=== PATIENT | female | born 1980 | race Caucasian/White ===

== ENCOUNTER → 2019-02-14 | Day surgery (SDC) | payer OTHER ==
--- OUTSIDE RECORDS SUMMARY | 2019-02-14 09:39 | XMS REPORT | Clinical Summary ---
:1980 Author Organization [facility] Address [address] [place] [address] Care Team Providers Name Role Phone Ketan Mccarthy MD Primary Care Provider Allergies Active Allergy Reactions Severity Noted Date Comments Amoxicillin-Pot Clavulanate GI Intolerance, Diarrhea Low 11/25/2010 Codeine Sulfa (Sulfonamide Antibiotics) Other (See Comments) Low Medications Medication Sig Dispensed Refills Start Date End Date Status lisinopril Take 10 mg by 0 Active (PRINIVIL,ZESTRIL) mouth daily. 10 mg tablet montelukast Take 10 mg by 0 Active (SINGULAIR) 10 mg mouth nightly. tablet fexofenadine Take 180 mg by 0 Active (GERALDINE) 180 MG mouth daily. tablet meloxicam (MOBIC) 15 TAKE 1 90 tablet 1 12/23/2018 Active mg tablet TABLET(15 MG) BY MOUTH DAILY traMADol (ULTRAM) 50 Take 1 tablet 30 tablet 0 07/16/2018 mg tablet (50 mg total) 8 by mouth every 6 (six) hours as needed for moderate pain for up to 30 days. clindamycin (CLEOCIN Take 1 capsule 6 capsule 0 07/30/2018 Discontinued HCL) 300 MG capsule (300 mg total) 8 by mouth 3 (three) times a day for 2 days. ondansetron ODT Take 1 tablet 30 tablet 1 07/30/2018 (ZOFRAN ODT) 4 MG (4 mg total) 8 disintegrating by mouth every tablet 8 (eight) hours as needed for nausea or vomiting for up to 30 days. HYDROcodone-acetamin Take 1 tablet 50 tablet 0 08/01/2018 ophen (NORCO) 10-325 by mouth every 8 mg per tablet 4 (four) hours as needed for severe pain for up to 30 days. Max Daily Amount: 6 tablets HYDROcodone-acetamin Take 1-2 50 tablet 0 09/12/2018 ophen (NORCO) 5-325 tablets by 8 mg per tablet mouth every 4 (four) hours as needed for moderate pain for up to 30 days. Max Daily Amount: 12 tablets meloxicam (MOBIC) 15 Take 1 tablet 30 tablet 1 10/28/2018 Discontinued mg tablet (15 mg total) 9 by mouth daily. Active Problems Problem Noted Date Loose body of right knee 07/19/2018 Overview: Added automatically from request for surgery [id number] Encounters Date Type Specialty Care Team Description 12/31/2018 Office Visit Orthopedic Iggy Myles, Osteochondritis Surgery dissecans of knee, right (Primary Dx) 12/22/2018 Refill Orthopedic Iggy Myles, Surgery 11/19/2018 Office Visit Iggy Carver, Loose body of right Surgery knee (Primary Dx) 10/28/2018 Telephone Orthopedic Diana Galloway MA Surgery 10/28/2018 Orders Only Orthopedic Diana Galloway MA Surgery 10/15/2018 Office Visit Iggy Carver, Tear of medial meniscus of right knee, current, unspecified tear type, subsequent encounter ( Primary Dx); Surgery Osteochondritis dissecans of knee, right; Effusion of right knee 09/12/2018 Office Visit Iggy Carver, Effusion of right knee Surgery (Primary Dx) 08/13/2018 Office Visit Orthopedic Iggy Myles, Osteochondritis Surgery dissecandenae of knee, right (Primary Dx) 08/02/2018 Anesthesia Event General Surgery Arianne Montejo FNP 08/02/2018 Surgery General Surgery Iggy Myles, Right Arthroscopy of MD the Knee with Removal of Loose Body 08/02/2018 Hospital Encounter General Surgery Iggy Myles MD 08/01/2018 Orders Only Orthopedic Diana Galloway MA Surgery 08/01/2018 Orders Only Orthopedic Darci Cates MA Loose body of right Surgery knee (Primary Dx) 07/30/2018 Orders Only Orthopedic Peluse, Surgery MERCEDES Joshua 07/30/2018 Orders Only Orthopedic Peluse, Surgery MERCEDES Joshua 07/25/2018 Pre-Admit Testing Pre-Admission Iggy Myles, Pre-op testing Appointment Testing MD (Primary Dx) 07/19/2018 Transcribe Orders Orthopedic Iggy Myles Loose body of right Surgery MD knee (Primary Dx) 07/16/2018 Office Visit Orthopedic Iggy Myles, Osteochondritis Surgery dissecans of knee, right (Primary Dx) 07/13/2018 Hospital Encounter Radiology Iggy Myles Osteochondritis dissecans of knee, right 07/02/2018 Office Visit Orthopedic Iggy Myles, Osteochondritis Surgery dissecans of knee, right (Primary Dx) after 02/13/2018 Family History Medical History Relation Name Comments Hypertension Father Hypertension Mother Thyroid disease Mother Relation Name Status Comments Father Alive Mother Alive Social History Tobacco Use Types Packs/Day Years Used Date Never Smoker Smokeless Tobacco: Never Used Alcohol Use Drinks/Week oz/Week Comments Yes OCASSIONAL PER PT Sex Assigned at Date Recorded Not on file Job Start Date Occupation Industry Not on file Not on file Not on file Travel History Travel Start Travel End No recent travel history available. Last Filed Vital Signs Vital Sign Reading Time Taken Blood Pressure 138/78 08/02/2018 4:45 PM CDT Pulse 90 08/02/2018 4:45 PM CDT Temperature 36.6 C (97.8 F) 08/02/2018 4:00 PM CDT Respiratory Rate 22 08/02/2018 4:45 PM CDT Oxygen Saturation 96% 08/02/2018 4:45 PM CDT Inhaled Oxygen Concentration - - Weight 91.6 kg (202 lb) 08/02/2018 10:39 AM CDT Height 167.6 cm (5' 6") 07/25/2018 9:43 AM CDT Body Mass Index 32.6 08/02/2018 10:39 AM CDT Plan of Treatment Health Maintenance Due Date Last Done Comments CERVICAL CANCER SCREENING 2003 INFLUENZA VACCINE 06/12/2019 Procedures Procedure Name Priority Date/Time Associated Comments Diagnosis [place] ARTHROCENTESIS Routine 09/12/2018 10:00 Effusion of right Results for this ASPIR&/INJ MAJOR AM CDT knee procedure are in JT/BURSA W/O US the results section. TX AN ELECTIVE Routine 08/02/2018 1:59 SUPRAGLOTTIC AIRWAY PM CDT Procedure Note - Cristela José CRNA - 08/02/2018 1:59 PM CDT Airway Date/Time: 08/02/2018 1:51 PM Performed by: CRISTELA JOSÉ Authorized by: LUCRETIA BAIRD Location: OR Urgency: Elective Difficult Airway: No Anesthesiologist: LUCRETIA BAIRD Resident/SCRUM COACH/AA: CRISTEAL JOSÉ Performed by: resident/SCRUM COACH/AA Preoxygenated with 100% O2: Yes C-spine Precautions Maintained Throughout: Yes Mask Ventilation: Not attempted Final Airway Type: Supraglottic airway Final LMA: Unique LMA Size: 4 Number of Attempts at Approach: 1 Atraumatic LMA insertion; lips/teeth/gums unchanged. POC , Routine 08/02/2018 10:49 Results for this URINE AM CDT procedure are in the results section. POC GLUCOSE Routine 08/02/2018 10:37 Results for this AM CDT procedure are in the results section. ESTIMATED GFR Routine 07/25/2018 10:25 Results for this AM CDT procedure are in the results section. BASIC METABOLIC Routine 07/25/2018 10:25 Pre-op testing Results for this PANEL AM CDT procedure are in the results section. HC COMPLETE BLD Routine 07/25/2018 10:25 Pre-op testing Results for this COUNT W/AUTO DIFF AM CDT procedure are in the results section. ECG PRE/POST OP Routine 07/25/2018 9:19 Pre-op testing Results for this AM CDT procedure are in the results section. MRI KNEE WO Routine 07/13/2018 10:54 Osteochondritis Results for this CONTRAST RIGHT AM CDT dissecans of knee, procedure are in right the results section. after 02/13/2018 Results Large Joint Arthrocentesis (09/12/2018 10:00 AM CDT) Narrative Performed At Iggy Myles MD 09/12/2018 10:57 AM Large Joint Arthrocentesis Consent given by: patient Timeout: Immediately prior to procedure a time out was called to verify the correct patient, procedure, equipment, information support project manager and site/side marked as required Supporting Documentation Indications: pain and joint swelling Procedure Details Preparation: Patient was prepped and draped in the usual sterile fashion Ultrasound guided: no Location: knee - R knee Right side: Needle size: 25 G Approach: anterolateral Right knee medications administered: 5 mL lidocaine 10 mg/mL (1 %); 80 mg methylPREDNISolone acetate 40 mg/mL POC , urine (08/02/2018 10:49 AM CDT) test urine, POC Negative QC done Yes Specimen Urine POC glucose (08/02/2018 10:37 AM CDT) POC glucose 81 65 - 99 mg/dL [facility] DEPARTMENT OF PATHOLOGY AND Comment: GENOMIC MEDICINE Meter ID: [id number] Help Desk Supervisor: Bard Rios Performing Organization Address City/[facility] Phone Number [facility] DEPARTMENT OF PATHOLOGY [id number] [place] [address] AND IMANIN MEDICINE Estimated GFR (07/25/2018 10:25 AM CDT) Estimated GFR >=90 mL/min/1.73 m2 [facility] DEPARTMENT OF Comment: PATHOLOGY AND GENOMIC CatergoryUnitsInterpretation MEDICINE G1 >=90 Normal or high G2 60-89Mildly decreased [id number] to moderately decreased O3c70-81Tpexjlcukl to severely decreased G4 15-29Severely decreased G5 <15Kidney failure The eGFR was calculated using the Chronic Kidney Disease Epidemiology Collaboration (CKD-EPI) equation. Interpretation is based on recommendations of the National Kidney Foundation-Kidney Disease Outcomes Quality Initiative (NKF-KDOQI) published in 2014. Specimen Plasma specimen Performing Organization Address City/[facility] Phone Number [facility] DEPARTMENT OF PATHOLOGY [address] [place] [address] AND [employer]. CBC with platelet and differential (07/25/2018 10:25 AM CDT) WBC 7.8 4.5 - 11.0 k/uL [facility] DEPARTMENT OF PATHOLOGY AND GENOMIC MEDICINE RBC 4.01 (L) 4.20 - 5.50 m/uL [facility] DEPARTMENT OF PATHOLOGY AND GENOMIC MEDICINE HGB 11.9 (L) 12.0 - 16.0 g/dL [facility] DEPARTMENT OF PATHOLOGY AND GENOMIC MEDICINE HCT 36.0 (L) 37.0 - 47.0 % [facility] DEPARTMENT OF PATHOLOGY AND GENOMIC MEDICINE MCV 89.8 82.0 - 100.0 fL [facility] DEPARTMENT OF PATHOLOGY AND GENOMIC MEDICINE MCH 29.7 27.0 - 34.0 pg [facility] DEPARTMENT OF PATHOLOGY AND GENOMIC MEDICINE MCHC 33.1 31.0 - 37.0 g/dL [facility] DEPARTMENT OF PATHOLOGY AND GENOMIC MEDICINE RDW - SD 41.7 37.0 - 55.0 fL [facility] DEPARTMENT OF PATHOLOGY AND GENOMIC MEDICINE MPV 10.4 6.9 - 11.0 fL [facility] DEPARTMENT OF PATHOLOGY AND GENOMIC MEDICINE Platelet count 247 150 - 400 K/uL [facility] DEPARTMENT OF PATHOLOGY AND GENOMIC MEDICINE Nucleated RBC 0.00 /100 WBC [facility] DEPARTMENT OF PATHOLOGY AND GENOMIC MEDICINE Neutrophils 68.0 39.0 - 69.0 % [facility] DEPARTMENT OF PATHOLOGY AND GENOMIC MEDICINE Lymphocytes 22.6 (L) 25.0 - 45.0 % [facility] DEPARTMENT OF PATHOLOGY AND GENOMIC MEDICINE Monocytes 7.3 0.0 - 10.0 % [facility] DEPARTMENT OF PATHOLOGY AND GENOMIC MEDICINE Eosinophils 1.4 0.0 - 5.0 % [facility] DEPARTMENT OF PATHOLOGY AND GENOMIC MEDICINE Basophils 0.4 0.0 - 1.0 % [facility] DEPARTMENT OF PATHOLOGY AND GENOMIC MEDICINE Immature granulocytes 0.3 0.0 - 1.0 % [facility] DEPARTMENT OF PATHOLOGY AND GENOMIC MEDICINE Specimen Blood Performing Organization Address City/[facility] Phone Number [facility] DEPARTMENT OF PATHOLOGY [address] [place] [address] AND IMANIN MEDICINE Basic metabolic panel (07/25/2018 10:25 AM CDT) Sodium 141 135 - 148 mEq/L [facility] DEPARTMENT OF PATHOLOGY AND GENOMIC MEDICINE Potassium 4.1 3.5 - 5.0 mEq/L [facility] DEPARTMENT OF PATHOLOGY AND GENOMIC MEDICINE Chloride 104 98 - 112 mEq/L [facility] DEPARTMENT OF PATHOLOGY AND GENOMIC MEDICINE CO2 25 24 - 31 mEq/L [facility] DEPARTMENT OF PATHOLOGY AND GENOMIC MEDICINE Anion gap 12@ANIO 7 - 15 mEq/L [facility] DEPARTMENT OF PATHOLOGY AND GENOMIC MEDICINE BUN 10 6 - 20 mg/dL [facility] DEPARTMENT OF PATHOLOGY AND GENOMIC MEDICINE Creatinine 0.71 0.50 - 0.90 mg/dL [facility] DEPARTMENT OF PATHOLOGY AND GENOMIC MEDICINE Glucose 77 65 - 99 mg/dL [facility] DEPARTMENT OF PATHOLOGY AND GENOMIC MEDICINE Calcium 9.2 8.3 - 10.2 mg/dL [facility] DEPARTMENT OF PATHOLOGY AND GENOMIC MEDICINE Specimen Plasma specimen Performing Organization Address City/[facility] Phone Number [facility] DEPARTMENT OF PATHOLOGY [address] [facility] [place] [address] AND GENOMIC MEDICINE ECG Pre/Post Op (07/25/2018 9:19 AM CDT) Ventricular rate 84 [facility] Atrial rate 84 [facility] TX interval 140 [facility] QRSD interval 84 [facility] QT interval 370 [facility] QTC interval 437 [facility] P axis 1 29 [facility] QRS axis 1 29 [facility] T wave axis 16 [facility] EKG impression Normal sinus rhythm-Cannot rule out Anterior [facility] infarct , age undetermined-Abnormal ECG-No previous ECGs available- Performing Organization Address City/State/Zipcode Phone Number [facility] M[facility] [address] [place] [address] MRI Knee Right Wo Contrast (07/13/2018 10:54 AM CDT) Narrative Performed At MRI KNEE WO CONTRAST RIGHT [facility] CLINICAL INDICATION:M93.261 Osteochondritis dissecansright knee, pain right knee TECHNIQUE:Multiplanar multisequence MR imaging of the right knee was performed without gadolinium contrast. COMPARISON:None. FINDINGS: Cruciate ligaments:Intact Menisci:There is focal blunting of the free edge of the posterior horn of the medial meniscus consistent with tear. Additional focal free edge tearing of the medial meniscal body is noted. Lateral meniscus is intact. Collateral ligaments:Intact Bone marrow:There is an osteochondral fragment involving the medial femoral condyle centrally with well-defined margins, the fragment 1.6 cm anteroposterior and 1.5 cm transverse. Sclerotic margins as well as fluid signal undercuts the deep aspect of this lesion consistent with an unstable lesion and there is moderate focal surrounding bone marrow edema (series 6 image 18 for example). Articular cartilage:Articular surface irregularity of the medial femoral condyle is noted about the osteochondral defect and there is mild thinning peripherally in the medial compartment. Otherwise unremarkable. Effusion:Small and large joint effusion. Extensor mechanism:Intact Soft tissues:No collection or significant periarticular tendinopathy. IMPRESSION: 1.6 cm unstable osteochondral defect involving the medial femoral condyle with associated bone marrow edema. Focal tears of the posterior horn and body of the medial meniscus as described. Thank you for allowing us to participate in the care of your patient. [facility]-[id number] Procedure Note Hm Interface, Radiology Results Incoming - 07/13/2018 11:31 AM CDT MRI KNEE WO CONTRAST RIGHT CLINICAL INDICATION: M93.261 Osteochondritis dissecans right knee, pain right knee TECHNIQUE: Multiplanar multisequence MR imaging of the right knee was performed without gadolinium contrast. COMPARISON: None. FINDINGS: Cruciate ligaments: Intact Menisci: There is focal blunting of the free edge of the posterior horn of the medial meniscus consistent with tear. Additional focal free edge tearing of the medial meniscal body is noted. Lateral meniscus is intact. Collateral ligaments: Intact Bone marrow: There is an osteochondral fragment involving the medial femoral condyle centrally with well-defined margins, the fragment 1.6 cm anteroposterior and 1.5 cm transverse. Sclerotic margins as well as fluid signal undercuts the deep aspect of this lesion consistent with an unstable lesion and there is moderate focal surrounding bone marrow edema (series 6 image 18 for example). Articular cartilage: Articular surface irregularity of the medial femoral condyle is noted about the osteochondral defect and there is mild thinning peripherally in the medial compartment. Otherwise unremarkable. Effusion: Small and large joint effusion. Extensor mechanism: Intact Soft tissues: No collection or significant periarticular tendinopathy. IMPRESSION: 1.6 cm unstable osteochondral defect involving the medial femoral condyle with associated bone marrow edema. Focal tears of the posterior horn and body of the medial meniscus as described. Thank you for allowing us to participate in the care of your patient. [facility]-[id number] Performing Organization Address City/State/Zipcode Phone Number [facility] [address] [place] [address] after 02/13/2018 Insurance Payer Benefit Plan / Group Subscriber ID Type Phone Address [employer] ADMIN xxxxxxxxx PPO Advance Directives Patient has advance care planning documents on file. For more information, please contact:[address] [address]
--- NOTE | 2019-02-14 12:30 | RAD REPORT ---
EXAM DESCRIPTION: US - Breast Core BX w/US Guidance - 02/14/2019 10:51 am CLINICAL HISTORY: ICD N63.10 COMPARISON: February 11 2019 ultrasound TECHNIQUE: The risks, benefits alternatives to the procedure were explained to the patient and infor med consent obtained. Skin and subcutaneous tissues anesthetized with lidocaine. Under sonographic guidance, ree 14 gauge vacuum assisted core biopsies of the 1.4 centimeter mass w ithin the lower outer right breast obtained. 2 centimeter specimens taken. Materials given to pathology. Subsequently a localizing clip was placed into the mass. Patient experienced no immediate complication IMPRESSION: Vacuum assisted core biopsies of the right breast mass
== END ==
LOC: DS 09:37
PROVIDERS: ATTEND Clinical Nurse Specialist Women's Health
DX: N63.10 Unspecified lump in the right breast, unspecified quadrant (principal)
CPT/HCPCS: 19083; 88305

== ENCOUNTER 2019-03-04 21:59 | Observation (INO) | payer OTHER ==
--- OUTSIDE RECORDS SUMMARY | 2019-03-04 22:02 | XMS REPORT | Clinical Summary ---
:1980 Author Organization [facility] Address [address] [place] [address] Care Team Providers Name Role Phone Ketan [...] Overview: Added automatically from request for surgery [id number] Encounters Date Type Specialty Care Team Description 12/31/2018 Office Visit Orthopedic Iggy Myles, Osteochondritis Surgery dissecans of knee, right (Primary Dx) 12/22/2018 Refill Orthopedic Iggy Myles, Surgery 11/19/2018 Office Visit Iggy Carver, Loose body of right Surgery knee (Primary Dx) 10/28/2018 Telephone Orthopedic Diana Glaloway MA Surgery 10/28/2018 Orders Only Orthopedic Diana [...] dissecans of knee, right (Primary Dx) after 03/03/2018 Family History Medical History Relation Name Comments [...] Procedure Name Priority Date/Time Associated Comments Diagnosis [place] ARTHROCENTESIS Routine 09/12/2018 10:00 Effusion of right Results for this ASPIR&/INJ MAJOR AM CDT knee procedure are in JT/BURSA W/O US the results section. [place] AN ELECTIVE Routine 08/02/2018 1:59 SUPRAGLOTTIC AIRWAY PM CDT Procedure Note - Cristela José CRNA - 08/02/2018 1:59 PM CDT Airway Date/Time: 08/02/2018 1:51 PM Performed by: CRISTELA JOSÉ Authorized by: LUCRETIA BAIRD Location: OR Urgency: Elective Difficult Airway: No Anesthesiologist: LUCRETIA BAIRD Resident/REGIONAL RECRUITER/AA: CRISTELA JOSÉ Performed by: resident/REGIONAL RECRUITER/AA Preoxygenated with 100% O2: Yes C-spine Precautions [...] are in right the results section. after 03/03/2018 Results Large Joint Arthrocentesis (09/12/2018 10:00 AM CDT) Narrative Performed At Iggy Myles MD 09/12/2018 10:57 AM Large Joint Arthrocentesis Consent given by: patient Timeout: Immediately prior to procedure a time out was called to verify the correct patient, procedure, equipment, desktop support associate and site/side marked as required Supporting Documentation [...] POC glucose 81 65 - 99 mg/dL [facility] DEPARTMENT OF PATHOLOGY AND Comment: GENOMIC MEDICINE Meter ID: [id number] Dental Office Coordinator: Bard Rios Performing Organization Address City/[facility] Phone Number [facility] DEPARTMENT OF PATHOLOGY [id number] [place] [address] AND [employer] MEDICINE Estimated GFR (07/25/2018 10:25 AM CDT) Estimated GFR >=90 mL/min/1.73 m2 [facility] DEPARTMENT OF Comment: PATHOLOGY AND GENOMIC CatergoryUnitsInterpretation MEDICINE G1 >=90 Normal or high G2 60-89Mildly decreased [id number] to moderately decreased H0u99-14Ekoxhoware to severely decreased G4 15-29Severely decreased G5 <15Kidney failure The eGFR was calculated using the Chronic Kidney Disease Epidemiology Collaboration (CKD-EPI) equation. Interpretation is based on recommendations of the National Kidney Foundation-Kidney Disease Outcomes Quality Initiative (NKF-KDOQI) published in 2014. Specimen Plasma specimen Performing Organization Address City/[facility] Cent[facility]ode Phone Number [facility] DEPARTMENT OF PATHOLOGY [address] [place] [address] AND [employer] CBC with platelet and differential (07/25/2018 10:25 AM CDT) WBC 7.8 4.5 - 11.0 k/uL [facility] DEPARTMENT OF PATHOLOGY AND GENOMIC MEDICINE RBC 4.01 (L) 4.20 - 5.50 m/uL [facility] DEPARTMENT OF PATHOLOGY AND GENOMIC MEDICINE HGB 11.9 (L) 12.0 - 16.0 g/dL [facility] DEPARTMENT OF PATHOLOGY AND GENOMIC MEDICINE HCT 36.0 (L) 37.0 - 47.0 % [facility] DEPARTMENT OF PATHOLOGY AND GENOMIC MEDICINE MCV 89.8 82.0 - 100.0 fL [facility] DEPARTMENT OF PATHOLOGY AND GENOMIC MEDICINE MCH 29.7 27.0 - 34.0 pg [facility] DEPARTMENT OF PATHOLOGY AND GENOMIC MEDICINE MCHC 33.1 31.0 - 37.0 g/dL [facility] DEPARTMENT OF PATHOLOGY AND GENOMIC MEDICINE RDW - SD 41.7 37.0 - 55.0 fL [facility] DEPARTMENT OF PATHOLOGY AND GENOMIC MEDICINE MPV 10.4 6.9 - 11.0 fL [facility] DEPARTMENT OF PATHOLOGY AND GENOMIC MEDICINE Platelet count 247 150 - 400 K/uL [facility] DEPARTMENT OF PATHOLOGY AND GENOMIC MEDICINE Nucleated RBC 0.00 /100 WBC [facility] DEPARTMENT OF PATHOLOGY AND GENOMIC MEDICINE Neutrophils 68.0 39.0 - 69.0 % [facility] DEPARTMENT OF PATHOLOGY AND GENOMIC MEDICINE Lymphocytes 22.6 (L) 25.0 - 45.0 % [facility] DEPARTMENT OF PATHOLOGY AND GENOMIC MEDICINE Monocytes 7.3 0.0 - 10.0 % [facility] DEPARTMENT OF PATHOLOGY AND GENOMIC MEDICINE Eosinophils 1.4 0.0 - 5.0 % [facility] DEPARTMENT OF PATHOLOGY AND GENOMIC MEDICINE Basophils 0.4 0.0 - 1.0 % [facility] DEPARTMENT OF PATHOLOGY AND GENOMIC MEDICINE Immature granulocytes 0.3 0.0 - 1.0 % [facility] DEPARTMENT OF PATHOLOGY AND GENOMIC MEDICINE Specimen Blood Performing Organization Address City/[facility] Centercooh Phone Number [facility] DEPARTMENT OF PATHOLOGY [address] [place] [address] AND [employer] MEDICINE Basic metabolic panel (07/25/2018 10:25 AM CDT) Sodium 141 135 - 148 mEq/L [facility] DEPARTMENT OF PATHOLOGY AND GENOMIC MEDICINE Potassium 4.1 3.5 - 5.0 mEq/L [facility] DEPARTMENT OF PATHOLOGY AND GENOMIC MEDICINE Chloride 104 98 - 112 mEq/L [facility] DEPARTMENT OF PATHOLOGY AND GENOMIC MEDICINE CO2 25 24 - 31 mEq/L [facility] DEPARTMENT OF PATHOLOGY AND GENOMIC MEDICINE Anion gap 12@ANIO 7 - 15 mEq/L [facility] DEPARTMENT OF PATHOLOGY AND GENOMIC MEDICINE BUN 10 6 - 20 mg/dL [facility] DEPARTMENT OF PATHOLOGY AND GENOMIC MEDICINE Creatinine 0.71 0.50 - 0.90 mg/dL [facility] DEPARTMENT OF PATHOLOGY AND GENOMIC MEDICINE Glucose 77 65 - 99 mg/dL [facility] DEPARTMENT OF PATHOLOGY AND GENOMIC MEDICINE Calcium 9.2 8.3 - 10.2 mg/dL [facility] DEPARTMENT OF PATHOLOGY AND GENOMIC MEDICINE Specimen Plasma specimen Performing Organization Address City/[facility] Phone Number [facility] DEPARTMENT OF PATHOLOGY [address] [facility] [place] [address] AND [employer] MEDICINE ECG Pre/Post Op (07/25/2018 9:19 AM CDT) Ventricular rate 84 [facility] Atrial rate 84 [facility] [place] interval 140 [facility] QRSD interval 84 [facility] QT interval 370 [facility] QTC interval 437 [facility] P axis 1 29 [facility] QRS axis 1 29 [facility] T wave axis 16 [facility] EKG impression Normal sinus rhythm-Cannot rule out Anterior [facility] infarct , age undetermined-Abnormal ECG-No previous ECGs available- Performing Organization Address City/State/Zipcode Phone Number [facility] MUSE [address] [place] [address] MRI Knee Right Wo Contrast (07/13/2018 10:54 [...] participate in the care of your patient. [facility]-[id number] Procedure Note Hm Interface, Radiology Results Incoming [...] participate in the care of your patient. [facility]-[id number] Performing Organization Address City/State/Zipcode Phone Number [facility] [address] [place] [address] after 03/03/2018 Insurance Payer Benefit Plan / Group Subscriber ID Type Phone Address [employer] SIG ADMIN xxxxxxxxx PPO Advance Directives Patient has advance care planning documents on file. For more information, please contact:[address] [address]
[2019-03-04] MEDS ORDERED: MORPHINE 4 MG/ML SYR ONE (23:02)
[2019-03-04] MEDS ORDERED: NA CHLORIDE 0.9% 1,000 ML ONE (23:02)
[2019-03-04] MEDS ORDERED: ONDANSETRON 4 MG/2 ML VIAL ONE (23:02)
[2019-03-04 23:07] LABS: Absolute Lymphocytes (CBC) 1.1 K/uL (0.7-4.9); Absolute Monocytes 0.6 K/uL (0.1-1.3); Absolute Neutrophil 14.6 K/uL (1.8-8.0); Basophils % 0.3 % (0-1.3); Eosinophils % 0.1 % (0-4.4); Hematocrit 35.6 % (36.0-45.0); Lymphocytes % 6.9 % (15.3-44.8); MPV 9.3 fL (7.6-11.3); Monocytes % 3.6 % (3.3-12.3); RBC Red Blood Cell Count 4.03 M/uL (3.86-4.86)
[2019-03-04 23:24] LABS: ALT/SGPT 35 U/L (12-78); AST/SGOT 21 U/L (15-37); Albumin 4.1 g/dL (3.4-5.0); Alkaline Phosphatase 63 U/L (45-117); BUN Blood Urea Nitrogen 18 mg/dL (7-18); Bicarbonate 26 mmol/L (21-32); Bilirubin Direct < 0.1 mg/dL (0-0.2); Bilirubin Total 0.3 mg/dL (0.2-1.0); Glucose Level 97 mg/dL (74-106); Lipase 114 U/L (73-393); Potassium 4.1 mmol/L (3.5-5.1); Protein, Total 8.1 g/dL (6.4-8.2); Sodium Level 140 mmol/L (136-145)
[2019-03-04 23:57] LABS: Blood Morphology Comment NOT SEEN (NOT SEEN); Platelet Estimate ADEQ
[2019-03-05 01:12] LABS: Urine Blood NEGATIVE (NEG); Urine Glucose NEGATIVE (NEG); Urine Protein NEGATIVE (NEG); Urine Specific Gravity 1.025 (1.005-1.030); Urine pH 5.5 (5.0-7.0)
[2019-03-05 01:45] LABS: Urine Mucus 2+ /HPF (NONE SEEN)
[2019-03-05 01:46] LABS: Urine Bacteria <20 /HPF (<20); Urine Culture Reflex Order NOT NEEDED; Urine RBC <5 /HPF (NONE SEEN)
--- NOTE | 2019-03-05 01:51 | ER ---
Nurse's Notes [facility] Name: Ayaka Cheney Age: 38 yrs Sex: Female : 1980 Arrival Date: 03/04/2019 Time: 22:00 Bed 30 Private MD: BENJAMIN JO Diagnosis: Acute appendicitis Presentation: 03/04 22:16 Presenting complaint: Patient states: generalized abd pain X2 days with vomiting ak1 starting tonight. pt last BM this morning. pt sees Dr. Clark for new dx Breast cancer. Transition of care: patient was not received from another setting of care. Onset of symptoms was March 04, 2019. Risk Assessment: Do you want to hurt yourself or someone else? Patient reports no desire to harm self or others. Care prior to arrival: None. 22:16 Method Of Arrival: Ambulatory ak 22:16 Acuity: KARLENE 3 ak1 23:03 Initial Sepsis Screen: Does the patient meet any 2 criteria? No. Patient's initial mg2 sepsis screen is negative. Does the patient have a suspected source of infection? No. Patient's initial sepsis screen is negative. Triage Assessment: 22:18 General: Appears uncomfortable. 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 - Social history:: Smoking status: unknown. - Ebola Screening: : No symptoms or risks identified at this time. - Family history:: not pertinent. - Hospitalizations: : No recent hospitalization is reported. Screenin:03 Abuse screen: Denies threats or abuse. Denies injuries from another. Nutritional mg2 screening: No deficits noted. Tuberculosis screening: No symptoms or risk factors identified. Fall Risk IV access (20 points). Assessment: 23:02 General: Appears in no apparent distress. uncomfortable, Behavior is calm, cooperative. mg2 Pain: Complains of pain in abdomen Pain does not radiate. Pain currently is 10 out of 10 on a pain scale. Quality of pain is described as aching, Pain began gradually, 1 week ago Is intermittent. Neuro: Level of Consciousness is awake, alert, obeys commands, Oriented to person, place, time, situation. Cardiovascular: Capillary refill < 3 seconds Patient's skin is warm and dry. Respiratory: Airway is patent Respiratory effort is even, labored, Respiratory pattern is regular, symmetrical. GI: Bowel sounds present X 4 quads. Abd is soft and non tender X 4 quads. Reports lower abdominal pain, nausea, vomiting, since yesterday. EENT: No signs and/or symptoms were reported regarding the EENT system. Derm: Skin is intact, is healthy with good turgor, Skin is pink, warm \T\ dry. normal. Musculoskeletal: Circulation, motion, and sensation intact. Capillary refill < 3 seconds. 23:09 Reassessment: ultrasound done. mg2 03/05 00:12 Reassessment: Patient appears in no apparent distress at this time. Patient and/or mg2 family updated on plan of care and expected duration. Pain level reassessed. Patient is alert, oriented x 3, equal unlabored respirations, skin warm/dry/pink. Patient states feeling better. 01:05 Reassessment: patient sent to ct scan via wheelchair. mg2 02:06 Reassessment: patient informed about the need for hospitalization. patient agreed. mg2 Vital Signs: 03/04 22:15 BP 138 / 100; Pulse 149; Resp 16; Temp 98.6; Pulse Ox 99% on R/A; Weight 90.72 kg (R); ak1 Height 5 ft. 6 in. (167.64 cm) (R); Pain 10/10; 03/05 00:11 BP 126 / 87; Pulse 114; Resp 18; Pulse Ox 97% on R/A; Pain 0/10; mg2 01:31 BP 138 / 96; Pulse 110; Resp 18; Pulse Ox 100% on R/A; mg2 02:06 BP 120 / 77; Pulse 120; Resp 18; Pulse Ox 100% on R/A; Pain 9/10; mg2 03/04 22:15 Body Mass Index 32.28 (90.72 kg, 167.64 cm) ak1 ED Course: 03/04 22:00 Patient arrived in ED. am2 22:00 Ketan Mccarthy MD is Private Physician. am2 22:01 BENJAMIN JO is Private Physician. am2 22:15 Arm band placed on Patient placed in an exam room, on a stretcher, on pulse oximetry, ak1 Patient notified of wait time. 22:17 Triage completed. ak1 22:24 Juventino Falcon, SHANELL is Primary Nurse. mg2 22:24 [facility] Mondragon [facility]-C [facility]. snw 22:24 Raz Andrew MD is Attending Physician. snw 22:41 No provider procedures requiring assistance completed. Inserted saline lock: 20 gauge mg2 in left antecubital area, using aseptic technique. Blood collected. 22:50 Transvaginal Study Probe In Process Unspecified. EDMS 23:03 Patient has correct armband on for positive identification. Pulse ox on. NIBP on. Door mg2 closed. Warm blanket given. 23:54 Urine collected: clean catch specimen, clear. bb 03/05 01:24 CT Abd/Pelvis - W/Contrast In Process Unspecified. EDMS 01:50 Rocael Hernandez MD is Hospitalizing Provider. rn 02:23 Patient admitted, IV remains in place. mg2 Administered Medications: 03/04 23:01 Drug: morphine 4 mg Route: IVP; Site: left antecubital; mg2 03/05 00:06 Follow up: Response: No adverse reaction; Marked relief of symptoms mg2 03/04 23:01 Drug: Zofran 4 mg Route: IVP; Site: left antecubital; mg2 03/05 00:06 Follow up: Response: No adverse reaction; Marked relief of symptoms mg2 03/04 23:01 Drug: NS 0.9% 1000 ml Route: IV; Rate: 1000 ml; Site: left antecubital; mg2 03/05 00:05 Follow up: Response: No adverse reaction; IV Status: Completed infusion; IV Intake: mg2 1000ml 01:57 Drug: Rocephin - (cefTRIAXone) 1 grams Route: IVPB; Infused Over: 30 mins; Site: left mg2 antecubital; 02:23 Follow up: Response: No adverse reaction; IV Status: Completed infusion mg2 01:58 Drug: Flagyl 500 mg Volume: 100 ml; Route: IVPB; Rate: 200 ml/hr; Infused Over: 30 mg2 mins; Site: left antecubital; 02: Follow up: Response: No adverse reaction; IV Status: Completed infusion; IV Intake: mg2 100ml 02:02 Drug: morphine 4 mg Route: IVP; Site: left antecubital; ea 02:22 Follow up: Response: No adverse reaction; Pain is decreased mg2 Intake: 00:05 IV: 1000ml; Total: 1000ml. mg2 02: IV: 100ml; Total: 1100ml. mg2 Outcome: 01:50 Decision to Hospitalize by Provider. rn 02:23 Admitted to Med/surg accompanied by tech, via wheelchair, room 208, with chart, Report mg2 called to SHANELL Shanks 02: Condition: stable 02: Instructed on the need for admit, Demonstrated understanding of instructions. 02:29 Patient left the ED. antoinette Signatures: Dispatcher [employer] EDMS Luba Mondragon, TRANSPORTER DRIVER-C TRANSPORTER DRIVER-Csnw Dee Maria RN RN bb Nieto, Roman, MD MD rn Krenek, Amber, RN RN ak1 Moreno, Amanda am2 Antunez, Elena, RN RN ea Gardose, Michele, RN RN mg2 Corrections: (The following items were deleted from the chart) 03/04 23:08 23:02 GI: Bowel sounds present X 4 quads. Abd is soft and non tender X 4 quads. mg2 mg2
--- NOTE | 2019-03-05 01:51 | EDPHYS ---
Physician Documentation [facility] Name: Ayaka Cheney Age: 38 yrs Sex: Female : 1980 Arrival Date: 03/04/2019 Time: 22:00 Bed 30 Private MD: BENJAMIN JO ED Physician Raz Andrew HPI: 03/04 23:06 This 38 yrs old Female presents to ER via Ambulatory with complaints of rn Abdominal Pain, Nausea/Vomiting. 23:06 The patient presents to the emergency department with nausea, vomiting, abdominal pain, rn of the suprapubic area and right lower quadrant. Onset: The symptoms/episode began/occurred today. Possible causes: unknown. The symptoms are aggravated by movement, pressure, The symptoms are alleviated by nothing. Severity of symptoms: At their worst the symptoms were moderate in the emergency department the symptoms have improved. The patient has not experienced similar symptoms in the past. The patient has been recently seen by a physician:. Recently diagnosed with ovarian cyst, abd pain worse today, states doesn't do well with pain, took preg test and was negative today, is due to start period in a few days. . 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 - Social history:: Smoking status: unknown. - Ebola Screening: : No symptoms or risks identified at this time. - Family history:: not pertinent. - Hospitalizations: : No recent hospitalization is reported. ROS: 23:06 Constitutional: Negative for fever, chills, and weight loss, Eyes: Negative for injury, rn pain, redness, and discharge, Neck: Negative for injury, pain, and swelling, Cardiovascular: Negative for chest pain, palpitations, and edema, Respiratory: Negative for shortness of breath, cough, wheezing, and pleuritic chest pain, Abdomen/GI: + abd pain/nausea/vomiting Back: Negative for injury and pain, : Negative for injury, bleeding, discharge, and swelling, MS/Extremity: Negative for injury and deformity, Skin: Negative for injury, rash, and discoloration, Neuro: Negative for headache, weakness, numbness, tingling, and seizure. Exam: 23:06 Constitutional: This is a well developed, well nourished patient who is awake, alert, rn appears uncomfortable Head/Face: Normocephalic, atraumatic. Eyes: Pupils equal round and reactive to light, extra-ocular motions intact. Lids and lashes normal. Conjunctiva and sclera are non-icteric and not injected. Cornea within normal limits. Periorbital areas with no swelling, redness, or edema. ENT: dry MM Cardiovascular: tachycardic, regular Respiratory: Mild tachypnea Abdomen/GI: soft, + tender RLQ/suprapubic MS/ Extremity: Pulses equal, no cyanosis. Neurovascular intact. Full, normal range of motion. Equal circumference. Neuro: Awake and alert, GCS 15, oriented to person, place, time, and situation. Cranial nerves II-XII grossly intact. Motor strength 5/5 in all extremities. Sensory grossly intact. Vital Signs: 22:15 BP 138 / 100; Pulse 149; Resp 16; Temp 98.6; Pulse Ox 99% on R/A; Weight 90.72 kg (R); ak1 Height 5 ft. 6 in. (167.64 cm) (R); Pain 10/10; 03/05 00:11 BP 126 / 87; Pulse 114; Resp 18; Pulse Ox 97% on R/A; Pain 0/10; mg2 01:31 BP 138 / 96; Pulse 110; Resp 18; Pulse Ox 100% on R/A; mg2 02:06 BP 120 / 77; Pulse 120; Resp 18; Pulse Ox 100% on R/A; Pain 9/10; mg2 03/04 22:15 Body Mass Index 32.28 (90.72 kg, 167.64 cm) ak1 MDM: 03/04 22:32 Patient medically screened. rn 03/05 01:48 Differential diagnosis: Nonspecific abd pain, appendicitis, viral gastroenteritis, rn gastroenteritis, ovarian torsion. Data reviewed: vital signs, nurses notes, lab test result(s), radiologic studies, CT scan, ultrasound, and as a result, I will admit patient. Counseling: I had a detailed discussion with the patient and/or guardian regarding: the historical points, exam findings, and any diagnostic results supporting the discharge/admit diagnosis, lab results, radiology results, the need for further work-up and treatment in the hospital. Response to treatment: the patient's symptoms have mildly improved after treatment, and as a result, I will admit patient. Admission orders: after a detailed discussion of the patient's condition and case, the admit orders are written by me. 01:48 ED course: U/S of pelvis negative for ovarian torsion, + small cyst without free fluid, rn CT shows appendicitis without rupture. . 03/04 22:34 Order name: Basic Metabolic Panel; Complete Time: 23:26 03/04 22:34 Order name: CBC with Diff; Complete Time: 02:02 03/04 22:34 Order name: Hepatic Function; Complete Time: 23:26 03/04 22:34 Order name: Lipase; Complete Time: 23:26 03/04 22:34 Order name: Urine Microscopic Only; Complete Time: 02:02 03/04 23:10 Order name: Manual Differential; Complete Time: 02:02 [facility] 03/04 22:34 Order name: CT Abd/Pelvis - W/Contrast 03/04 22:41 Order name: Transvaginal Study Probe [facility] 03/04 23:54 Order name: Urine Dipstick--Ancillary (enter results); Complete Time: 02:02 03/04 23:54 Order name: Urine --Ancillary (enter results); Complete Time: 02:02 03/04 22:34 Order name: IV Saline Lock; Complete Time: 22:39 rn 03/04 22:34 Order name: Labs collected and sent; Complete Time: 22:39 rn 03/04 22:34 Order name: Urine Test (obtain specimen); Complete Time: 00:06 rn 03/04 22:34 Order name: Urine Dipstick-Ancillary (obtain specimen); Complete Time: 00:07 rn Administered Medications: 03/04 23:01 Drug: morphine 4 mg Route: IVP; Site: left antecubital; mg2 03/05 00:06 Follow up: Response: No adverse reaction; Marked relief of symptoms mg2 03/04 23:01 Drug: Zofran 4 mg Route: IVP; Site: left antecubital; mg2 03/05 00:06 Follow up: Response: No adverse reaction; Marked relief of symptoms mg2 03/04 23:01 Drug: NS 0.9% 1000 ml Route: IV; Rate: 1000 ml; Site: left antecubital; mg2 03/05 00:05 Follow up: Response: No adverse reaction; IV Status: Completed infusion; IV Intake: mg2 1000ml 01:57 Drug: Rocephin - (cefTRIAXone) 1 grams Route: IVPB; Infused Over: 30 mins; Site: left mg2 antecubital; 02:23 Follow up: Response: No adverse reaction; IV Status: Completed infusion mg2 01:58 Drug: Flagyl 500 mg Volume: 100 ml; Route: IVPB; Rate: 200 ml/hr; Infused Over: 30 mg2 mins; Site: left antecubital; 02:22 Follow up: Response: No adverse reaction; IV Status: Completed infusion; IV Intake: mg2 100ml 02:02 Drug: morphine 4 mg Route: IVP; Site: left antecubital; ea 02:22 Follow up: Response: No adverse reaction; Pain is decreased mg2 Disposition: 03/05/19 01:50 Hospitalization ordered by Rocael Hernandez for Observation. Preliminary diagnosis is Acute appendicitis. - Bed requested for Telemetry/MedSurg (observation). - Status is Observation. ea - Condition is Stable. - Problem is new. - Symptoms have improved. UTI on Admission? No Signatures: Dispatcher [employer] [facility] Raz Andrew MD MD rn Krenek, Amber RN RN akPatrizia Love RN RN Mouna Graham RN RN ea Gardose, Michele, RN RN mg2 Corrections: (The following items were deleted from the chart) 03/04 22:41 22:34 Pelvis Complete+US.RAD.BRZ ordered. [facility] 03/05 01:50 01:50 Hospitalization Ordered by Rocael Hernandez MD for Observation. Preliminary diagnosis rn is Acute appendicitis. Bed requested for Telemetry/MedSurg (Inpatient). Status is Observation. Condition is Stable. Problem is new. Symptoms have improved. UTI on Admission? No. rn 02:15 01:50 03/05/2019 01:50 Hospitalization Ordered by Rocael Hernandez MD for Observation. cg Preliminary diagnosis is Acute appendicitis. Bed requested for Telemetry/MedSurg (observation). Status is Observation. Condition is Stable. Problem is new. Symptoms have improved. UTI on Admission? No. rn 02:29 02:15 03/05/2019 01:50 Hospitalization Ordered by Rocael Hernandez MD for Observation. ea Preliminary diagnosis is Acute appendicitis. Bed requested for Telemetry/MedSurg (observation). Status is Observation. Condition is Stable. Problem is new. Symptoms have improved. UTI on Admission? No. cg
[2019-03-05] MEDS ORDERED: METRONIDAZOLE 500mg IVPB 500 MG/100 ML BAG IV ONE (02:03)
[2019-03-05] MEDS ORDERED: CEFTRIAXONE/SWI 1gm 1 GM/10 ML SYR ONE (02:03)
[2019-03-05] MEDS ORDERED: MORPHINE 4 MG/ML SYR ONE (02:13)
[2019-03-05] MEDS ORDERED: MORPHINE 4 MG/ML SYR IV PRN (02:45)
[2019-03-05] MEDS ORDERED: ONDANSETRON 4 MG/2 ML VIAL IV PRN ×2 (02:45→09:49)
[2019-03-05 03:02] VITALS: BMI 33.0
[2019-03-05] MEDS: D5 0.45 NS 1,000 ML IV SCH ×3 (03:09→18:45)
--- NOTE | 2019-03-05 07:58 | RAD REPORT ---
EXAM DESCRIPTION: US - Transvaginal Study Probe - 03/04/2019 10:50 pm CLINICAL HISTORY: Pelvic pain COMPARISON: none FINDINGS: The uterus measures 7 x 5 x 4cm. A fibroid is not seen. Endometrial stripe measures 13 mil limeters. The ovaries are normal in size and echotexture. A 2 centimeter left ovarian cyst. Blood flow within e ach ovary present No significant free fluid is seen. IMPRESSION: 2 centimeter left ovarian cyst without significant fluid
[2019-03-05] MEDS ORDERED: Ringers Lactate 1,000 ML IV ONE (08:21)
[2019-03-05] MEDS ORDERED: PROPOFOL 200 MG/20 ML VIAL IV ONE (08:27)
[2019-03-05] MEDS ORDERED: MIDAZOLAM HCL 2 MG/2 ML INJ ONE (08:27)
[2019-03-05] MEDS ORDERED: FENTANYL CITR 100 MCG/2 ML ONE (08:27)
[2019-03-05] MEDS ORDERED: LIDOCAINE 2% MPF 5 ML VIAL ONE (08:28)
[2019-03-05] MEDS ORDERED: ONDANSETRON 4 MG/2 ML VIAL ONE (08:29)
[2019-03-05] MEDS ORDERED: ROCURONIUM 50 MG/5 ML VIAL IV ONE (08:29)
[2019-03-05] MEDS ORDERED: BUPIVACAINE 0.5% PF 10 ML VIAL ONE (08:40)
[2019-03-05] MEDS ORDERED: DEXAMETHASONE 10 MG/ML VIAL ONE (09:22)
--- NOTE | 2019-03-05 09:43 | P.OP ---
Discharge Door Operator: Lulú NÚÑEZ Preoperative diagnosis: Acute Appendicitis Postoperative diagnosis: same Primary procedure: Laparoscopic Appendectomy Anesthesia: General Estimated blood loss: min Specimen: Appy Findings: As above, Suppuration Complications: None Transferred to: Recovery Room Condition: Good
[2019-03-05] MEDS ORDERED: HYDROMORPHONE HCL 1 MG/ML INJ IV PRN (09:49)
[2019-03-05] MEDS ORDERED: GLYCOPYRROLATE 0.2 MG/ML SYR ONE (09:57)
[2019-03-05] MEDS ORDERED: NEOSTIGMINE 1 MG/ML -10 ML VIAL ONE (09:58)
[2019-03-05] MEDS ORDERED: MEPERIDINE HCL 25 MG/0.5 ML ONE (10:09)
[2019-03-05] MEDS: METRONIDAZOLE 500mg IVPB 500 MG/100 ML BAG IV SCH ×2 (10:50→16:12)
[2019-03-05] MEDS ORDERED: CEFTRIAXONE 1 GM/NS 50 ML 1 GM/50 ML BAG IV SCH (13:00)
--- NOTE | 2019-03-05 13:11 | PREOPHP ---
Date of Admission: 03/05/2019 Chief Complaint: Abdominal pain. History Of Present Illness: The patient is a 38-year-old female, who has been having right lower leticia drant suprapubic pain constant for about 24 hours. However it has been intermittent for a couple of days associated with nausea and vomiting. No diarrhea, constipation. No blood in her stool. No dys uria or hematuria. No sore throat, runny nose, cough, headaches, or dizziness. Low-grade temperatur es. The patient does have anorexia. No chest pain. Review of Systems: Otherwise unremarkable. Please note, the patient has right breast cancer. She is being worked up in my office. She has seen Dr. Clark for genetic testing, is getting an MRI next Sunday. Past Medical History: Hypertension. Past Surgical History: Knee surgery. Allergies: INCLUDE AUGMENTIN. Social History: She does not smoke. Drinks occasionally. Family History: Significant for multiple different types of the cancer, not breast cancer. Physical Examination: Vital Signs: Her vital signs show slight tachycardia. Her blood pressure is stable. She is afebril e currently. General: She is awake, alert, and oriented x3. Head and Neck: Cranial nerves 2 through 12 are grossly within normal limits. No neck masses. No JV D. Throat clear. Neck is supple. Chest: Clear. Heart: S1 and S2. Abdomen: Soft, nondistended. Positive bowel sounds. Positive tenderness in the right lower quadran t associated with minimal rebound. No rigidity or guarding. Extremity: Adequately perfused. Nontender. Neuro: Nonfocal. Laboratory Data: White count is 16.4. Chemistry reviewed; her lactate is elevated. CT of the abdom en and pelvis reviewed, it is consistent with acute appendicitis. Assessment: Acute appendicitis. Plan: Admit, n.p.o., IV fluid, IV antibiotic, to the OR for laparoscopic appendectomy, possible open . The patient understands the risks, benefits, and alternatives and agrees to procedure. /MODL Voice ID: [id number]
[2019-03-05] MEDS: HYDROCODONE/APAP 7.5/325 MG TAB PO PRN ×2 (15:56→21:50)
--- NOTE | 2019-03-05 16:26 | OP ---
Date of Procedure: 03/05/2019 Surgeon: Rocael Hernandez MD Knitted Cloth Examiner: WILTON Espinoza. Preoperative Diagnosis: Acute appendicitis. Postoperative Diagnosis: Acute suppurative appendicitis. Procedure Performed: Laparoscopic appendectomy. Estimated Blood Loss: Minimal. Specimen: Appendix. Findings: As above. Anesthesia: General. Complications: None. Disposition: The patient tolerated the procedure in stable condition and taken to the Recovery in go od general condition. Procedure In Detail: The patient was brought to the OR and placed in supine position. General anest hesia was begun. The patient was prepped and draped in usual sterile fashion. Marcaine 0.5% infiltr ated locally. A 15-blade was used to make a 1 cm supraumbilical midline incision. Subcutaneous tiss ue divided. The fascia was identified and divided. A #1 Vicryl stay suture was placed, peritoneal c avity entered with sharp and blunt dissection. A 12 mm trocar was placed into the peritoneal cavity under direct vision. Pneumoperitoneum was established, and then two 5 mm trocars placed, 1 in the campoverde prapubic region and 1 in the left lower quadrant. Laparoscopy revealed acute suppurative appendiciti s. Base of the appendix clearly identified on the cecum. Endo-ROBERT stapling device was used to divid e that and the mesoappendix divided. There was minimal oozing noted from the appendiceal artery. Th is was easily controlled with vascular clips, and the mesoappendix was completely divided, and the en tire appendix was removed and sent to Pathology. Right lower quadrant was irrigated. Effluent was c lear. No evidence of bleeding or bowel injury appreciated. Although the appendix had suppuration in it, there was no evidence of perforation or abscess formation. The pelvis was aspirated of some ser ous fluid as well. No other evidence of disease was seen and then all trocars were removed under dir ect vision. Stay sutures were tied to each other to approximate the fascial defect. Subcutaneous wo unds were irrigated. Bleeding controlled with cautery, and then 3-0 chromic used to approximate the subcutaneous tissue and close the skin. Sterile dressing was applied. The patient was awakened and taken to Recovery in good general condition. /MODL Voice ID: [id number] Report ID: [id number]
[2019-03-05] MEDS: DIPHENHYDRAMINE 25 MG TAB/CAP PO PRN ×2 (17:10→21:50)
[2019-03-05] MEDS: CEFTRIAXONE/SWI 1gm 1 GM/10 ML SYR IV SCH (17:15)
[2019-03-05] MEDS: VALSARTAN 80 MG TAB PO SCH (17:47)
[2019-03-05] MEDS: MONTELUKAST 10 MG TAB PO SCH (17:48)
[2019-03-05] MEDS ORDERED: PANTOPRAZOLE 40MG TABLET PO SCH ×2 (18:00→21:00)
[2019-03-05] MEDS ORDERED: MELOXICAM 7.5 MG TAB PO SCH (18:00)
[2019-03-06] MEDS: METRONIDAZOLE 500mg IVPB 500 MG/100 ML BAG IV SCH ×2 (00:37→08:11)
[2019-03-06] MEDS: HYDROCODONE/APAP 7.5/325 MG TAB PO PRN ×2 (03:27→09:37)
[2019-03-06] MEDS: DIPHENHYDRAMINE 25 MG TAB/CAP PO PRN ×2 (03:29→09:38)
[2019-03-06] MEDS: D5 0.45 NS 1,000 ML IV SCH (03:30)
[2019-03-06] MEDS: CEFTRIAXONE/SWI 1gm 1 GM/10 ML SYR IV SCH (05:00)
[2019-03-06 06:22] LABS: Absolute Lymphocytes (CBC) 1.7 K/uL (0.7-4.9); Absolute Monocytes 0.6 K/uL (0.1-1.3); Absolute Neutrophil 10.1 K/uL (1.8-8.0); Basophils % 0.2 % (0-1.3); Eosinophils % 0.1 % (0-4.4); Hematocrit 28.5 % (36.0-45.0); Lymphocytes % 13.9 % (15.3-44.8); MPV 9.1 fL (7.6-11.3); RBC Red Blood Cell Count 3.17 M/uL (3.86-4.86)
[2019-03-06 06:25] LABS: BUN Blood Urea Nitrogen 10 mg/dL (7-18); Bicarbonate 25 mmol/L (21-32); Glucose Level 102 mg/dL (74-106); Potassium 3.6 mmol/L (3.5-5.1); Sodium Level 143 mmol/L (136-145)
[2019-03-06] MEDS: VALSARTAN 80 MG TAB PO SCH (08:09)
[2019-03-06] MEDS: MONTELUKAST 10 MG TAB PO SCH (08:10)
[2019-03-06 08:12] VITALS: BP 127/62
[2019-03-06 08:13] VITALS: O2SAT 95
[2019-03-06] MEDS ORDERED: MONTELUKAST 10 MG TAB PO SCH (09:00)
[2019-03-06] MEDS ORDERED: MELOXICAM 7.5 MG TAB PO SCH ×2 (09:00)
[2019-03-06] MEDS ORDERED: VALSARTAN 80 MG TAB PO SCH (09:00)
[2019-03-06 09:25] VITALS: TEMP 98
--- NOTE | 2019-03-06 11:44 | RAD REPORT ---
EXAM DESCRIPTION: CT - Abdomen Pelvis W Contrast - 03/05/2019 1:41 am CLINICAL HISTORY: The patient is 38 years old and is Female; ABD PAIN TECHNIQUE: Axial computed tomography images of the abdomen and pelvis with intravenous contrast. S agittal and coronal reformatted images were created and reviewed. This CT exam was performed using one or more of the following dose reduction techniques: automated exposure control, adjustment of t he mA and/or kV according to patient size, and/or use of iterative reconstruction technique. COMPARISON: No relevant prior studies available. FINDINGS: LUNG BASES: Unremarkable. No mass. No consolidation. ABDOMEN: LIVER: There is a diffuse decrease in hepatic parenchymal density, consistent with fatty infiltr ation. GALLBLADDER AND BILE DUCTS: No calcified stones. No ductal dilation. PANCREAS: No ductal dilation. No mass. SPLEEN: Unremarkable. ADRENALS: Unremarkable. No mass. KIDNEYS AND URETERS: Unremarkable. No solid mass. No hydronephrosis. STOMACH AND BOWEL: The stomach is distended with food contents and oral contrast. Oral contrast is present throughout majority the small bowel. Contrast and stool are present throughout the colon. There is no mucosal thickening or evidence of bowel obstruction. PELVIS: APPENDIX: The appendix is inflamed and dilated measuring up to 1.1 cm. Surrounding fat stranding and fluid is present. BLADDER: Unremarkable. No mass. REPRODUCTIVE: A 2.1 cm left ovarian cyst is present. The uterus and right ovary are unremarkable . ABDOMEN and PELVIS: INTRAPERITONEAL SPACE: Small amount of free fluid is present within the pelvis which is likely p hysiologic. No free air. BONES/JOINTS: No acute fracture. SOFT TISSUES: Known nodule within the right breast is present with associated surgical clip cons istent with patient's recent biopsy. VASCULATURE: Unremarkable. No abdominal aortic aneurysm. LYMPH NODES: Unremarkable. No enlarged lymph nodes. IMPRESSION: 1. Findings consistent with acute appendicitis. No evidence of periappendiceal abscess at this time. 2. Left ovarian cyst. No follow-up imaging is recommended. 3. Chronic findings as detailed above. Electronically signed by: Liseth Whittington MD 03/05/2019 1:30 AM CDT THIS REPORT CONTAINS FINDINGS THAT MAY BE CRITICAL TO PATIENT CARE: The findings were verbally discussed via telephone conference with Dr. Raz Andrew by Dr. Kelly Whittington on 03/05 1:32 AM CDT .The results were acknowledged and understood. Electronically signed by: Liseth Whittington MD 03/05/2019 1:32 AM CDT Due to temporary technical issues with the PACS/Fluency reporting system, reports are being signed by the in house radiologist as a courtesy to ensure prompt reporting. The interpreting radiologist is f ully responsible for the content of the report.
--- NOTE | 2019-03-07 09:10 | DS ---
Date of Discharge: 03/06/2019 Admitting Diagnosis: Acute appendicitis. Discharge Diagnosis: Acute suppurative appendicitis. Procedure Performed: Laparoscopic appendectomy. Hospital Course: The patient is a 38-year-old female who underwent the aforementioned procedure. Po stoperatively, she is tolerating diet and ambulating. Pain controlled with p.o. pain medication, afe brile. Therefore, patient will be discharged to home. Her white count is down almost to normal. Disposition: Home. Condition: Stable. Discharge Instructions: Resume home medications and diet. Activity, as tolerated. No heavy lifting . Remove outer dressing in a.m. Shower. Keep the Steri-Strips on at all times. Follow up in maurisio lewis in one week, call for appointment. Cipro 500 mg p.o. q.12 hours, Flagyl 500 mg p.o. q.6, Tyleno l No. 3 one tablet p.o. q.4 p.r.n. pain. /MODL Voice ID: [id number] Report ID: [id number]
== END 2019-03-06 12:07 | disposition home or self-care (01) ==
LOC: ER 21:59 → ERHOLD 03-05 02:00 → 2ND 03-05 02:22
PROVIDERS: ADMIT Surgery; ATTEND Surgery
PROC: 0DTJ4ZZ Resection of Appendix, Percutaneous Endoscopic Approach (ICD-10-PCS; principal; 2019-03-05 08:00)
DX: K35.80 Unspecified acute appendicitis (principal); C50.919 Malignant neoplasm of unspecified site of unspecified female breast; I10 Essential (primary) hypertension
CPT/HCPCS: 36415; 74177; 76830; 80048; 80076; 81003; 81015; 81025; 83605; 83690; 85025; 88304; 96361; 96365; 96375; 99285; G0378; J0696; J1100; J2175; J2250; J2405; J2704; J2710; J3010; J7030; Q9967

== ENCOUNTER 2019-03-27 06:44 | Day surgery (SDC) | payer OTHER ==
--- OUTSIDE RECORDS SUMMARY | 2019-03-27 07:01 | XMS REPORT | Clinical Summary ---
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 [place] AN ELECTIVE Routine 08/02/2018 1:59 SUPRAGLOTTIC AIRWAY PM CDT Procedure Note - Cristela José CRNA - 08/02/2018 1:59 PM CDT Airway Date/Time: 08/02/2018 1:51 PM Performed by: CRISTELA JOSÉ Authorized by: LUCRETIA BAIRD Location: OR Urgency: Elective Difficult Airway: No Anesthesiologist: LUCRETIA BAIRD Resident/SCROLL ASSEMBLER/AA: CRISTELA JOSÉ Performed by: resident/SCROLL ASSEMBLER/AA Preoxygenated with 100% O2: Yes C-spine Precautions [...] are in right the results section. after 03/26/2018 Results Large Joint Arthrocentesis (09/12/2018 10:00 AM CDT) Narrative Performed At Iggy Myles MD 09/12/2018 10:57 AM Large Joint Arthrocentesis Consent given by: patient Timeout: Immediately prior to procedure a time out was called to verify the correct patient, procedure, equipment, system support analyst and site/side marked as required Supporting Documentation [...] POC glucose 81 65 - 99 mg/dL [facility] DEPARTMENT OF PATHOLOGY AND Comment: GENOMIC MEDICINE Meter ID: [id number] Electric Organ Assembler: Bard Rios Performing Organization Address City/[facility] Phone Number [facility] DEPARTMENT OF PATHOLOGY [id number] [place] [address] AND [employer] [facility] Estimated GFR (07/25/2018 10:25 AM CDT) Estimated GFR >=90 mL/min/1.73 m2 [facility] DEPARTMENT OF Comment: PATHOLOGY AND GENOMIC CatergoryUnitsInterpretation MEDICINE G1 >=90 Normal or high G2 60-89Mildly decreased F1m84-17Cdaykf to moderately decreased V1y01-45Fkkiqexryz to severely decreased G4 15-29Severely decreased G5 <15Kidney failure The eGFR was calculated using the Chronic Kidney Disease Epidemiology Collaboration (CKD-EPI) equation. Interpretation is based on recommendations of the National Kidney Foundation-Kidney Disease Outcomes Quality Initiative (NKF-KDOQI) published in 2014. Specimen Plasma specimen Performing Organization Address City/[facility] Phone Number [facility] DEPARTMENT OF PATHOLOGY [address] [place] [address] AND Exacter CBC with platelet and differential (07/25/2018 10:25 AM CDT) WBC 7.8 4.5 - 11.0 k/uL [facility] DEPARTMENT OF PATHOLOGY AND GENOMIC MEDICINE RBC 4.01 (L) 4.20 - 5.50 m/uL [facility] DEPARTMENT OF PATHOLOGY AND GENOMIC MEDICINE HGB 11.9 (L) 12.0 - 16.0 g/dL [facility] DEPARTMENT OF PATHOLOGY AND GENOMIC MEDICINE HCT 36.0 (L) 37.0 - 47.0 % [facility] DEPARTMENT OF PATHOLOGY AND GENOMIC MEDICINE MCV 89.8 82.0 - 100.0 fL [facility] DEPARTMENT OF PATHOLOGY AND GENOMIC MEDICINE MCH 29.7 27.0 - 34.0 pg [facility] DEPARTMENT OF PATHOLOGY AND GENOMIC MEDICINE MCHC 33.1 31.0 - 37.0 g/dL [facility] DEPARTMENT OF PATHOLOGY AND GENOMIC MEDICINE RDW - SD 41.7 37.0 - 55.0 fL [facility] DEPARTMENT OF PATHOLOGY AND GENOMIC MEDICINE MPV 10.4 6.9 - 11.0 fL [facility] DEPARTMENT OF PATHOLOGY AND GENOMIC MEDICINE Platelet count 247 150 - 400 K/uL [facility] DEPARTMENT OF PATHOLOGY AND GENOMIC MEDICINE Nucleated RBC 0.00 /100 WBC [facility] DEPARTMENT OF PATHOLOGY AND GENOMIC MEDICINE Neutrophils 68.0 39.0 - 69.0 % [facility] DEPARTMENT OF PATHOLOGY AND GENOMIC MEDICINE Lymphocytes 22.6 (L) 25.0 - 45.0 % [facility] DEPARTMENT OF PATHOLOGY AND GENOMIC MEDICINE Monocytes 7.3 0.0 - 10.0 % [facility] DEPARTMENT OF PATHOLOGY AND GENOMIC MEDICINE Eosinophils 1.4 0.0 - 5.0 % [facility] DEPARTMENT OF PATHOLOGY AND GENOMIC MEDICINE Basophils 0.4 0.0 - 1.0 % [facility] DEPARTMENT OF PATHOLOGY AND GENOMIC MEDICINE Immature granulocytes 0.3 0.0 - 1.0 % [facility] DEPARTMENT OF PATHOLOGY AND GENOMIC MEDICINE Specimen Blood Performing Organization Address City/[facility] Phone Number [facility] DEPARTMENT OF PATHOLOGY [address] [place] [address] AND [employer] [facility] Basic metabolic panel (07/25/2018 10:25 AM CDT) Sodium 141 135 - 148 mEq/L [facility] DEPARTMENT OF PATHOLOGY AND GENOMIC MEDICINE Potassium 4.1 3.5 - 5.0 mEq/L [facility] DEPARTMENT OF PATHOLOGY AND GENOMIC MEDICINE Chloride 104 98 - 112 mEq/L [facility] DEPARTMENT OF PATHOLOGY AND GENOMIC MEDICINE CO2 25 24 - 31 mEq/L [facility] DEPARTMENT OF PATHOLOGY AND GENOMIC MEDICINE Anion gap 12@ANIO 7 - 15 mEq/L [facility] DEPARTMENT OF PATHOLOGY AND GENOMIC MEDICINE BUN 10 6 - 20 mg/dL [facility] DEPARTMENT OF PATHOLOGY AND GENOMIC MEDICINE Creatinine 0.71 0.50 - 0.90 mg/dL [facility] DEPARTMENT OF PATHOLOGY AND GENOMIC MEDICINE Glucose 77 65 - 99 mg/dL [facility] DEPARTMENT OF PATHOLOGY AND GENOMIC MEDICINE Calcium 9.2 8.3 - 10.2 mg/dL [facility] DEPARTMENT OF PATHOLOGY AND GENOMIC MEDICINE Specimen Plasma specimen Performing Organization Address City/[facility] Phone Number [facility] DEPARTMENT OF PATHOLOGY [address] [place] [address] AND GENOMIC MEDICINE ECG Pre/Post Op (07/25/2018 9:19 AM CDT) Ventricular rate 84 [facility] Atrial rate 84 [facility] W[place] interval 140 [facility] QRSD interval 84 [facility] QT interval 370 [facility] QTC interval 437 [facility] P axis 1 29 [facility] QRS axis 1 29 [facility] T wave axis 16 [facility] EKG impression Normal sinus rhythm-Cannot rule out Anterior [facility] infarct , age undetermined-Abnormal ECG-No previous ECGs available- Performing Organization Address City/State/Zipcode Phone Number [facility] [address] [place] [address] MRI Knee Right Wo Contrast (07/13/2018 10:54 [...] participate in the care of your patient. [id number] Procedure Note Hm Interface, Radiology Results Incoming [...] participate in the care of your patient. [facility]-[id number] Performing Organization Address City/State/Zipcode Phone Number [facility] [address] [place] [address] after 03/26/2018 Insurance Payer Benefit Plan / Group Subscriber ID Type Phone Address [employer] ADMIN xxxxxxxxx PPO Advance Directives Patient has advance care planning documents on file. For more information, please contact:[address] [address]
[2019-03-27 07:04] LABS: Specific Gravity 1.025 (1.005-1.030)
[2019-03-27] MEDS ORDERED: Ringers Lactate 1,000 ML IV ONE ×2 (07:16→11:29)
[2019-03-27] MEDS ORDERED: CEFAZOLIN/SWI 1gm 1 GM/10 ML SYR ONE (07:16)
[2019-03-27] MEDS ORDERED: METHYLENE BLUE 0.5% 10 ML AMP ONE ×2 (07:30→09:34)
[2019-03-27] MEDS ORDERED: BUPIVACAINE 0.5% Inj,MDV 50 mL VIAL ONE (07:30)
[2019-03-27] MEDS ORDERED: ROCURONIUM 50 MG/5 ML VIAL IV ONE (08:22)
[2019-03-27] MEDS ORDERED: LIDOCAINE 2% MPF 5 ML VIAL ONE (08:22)
[2019-03-27] MEDS ORDERED: PROPOFOL 200 MG/20 ML VIAL IV ONE (08:22)
[2019-03-27] MEDS ORDERED: MIDAZOLAM HCL 2 MG/2 ML INJ ONE (08:22)
[2019-03-27] MEDS ORDERED: FENTANYL CITR 250 MCG/5 ML ONE (08:22)
[2019-03-27] MEDS ORDERED: ONDANSETRON 4 MG/2 ML VIAL ONE (08:22)
[2019-03-27] MEDS ORDERED: KETOROLAC 30 MG/ML INJ ONE (10:30)
--- NOTE | 2019-03-27 10:31 | RAD REPORT ---
EXAM DESCRIPTION: US - Brst,Preop NL Wire Init w/Guid - 03/27/2019 8:11 am CLINICAL HISTORY: Breast cancer FINDINGS: The skin and subcutaneous tissues were anesthetized with Lidocaine. Under sonographic guid ance a hookwire was placed into the 1.5 centimeter mass within the lower outer right breast. The patient then left for the surgical department IMPRESSION: Sonographic guided needle wire localization and excision
--- NOTE | 2019-03-27 10:32 | RAD REPORT ---
EXAM DESCRIPTION: US - Surgical Specimen - 03/27/2019 10:11 am CLINICAL HISTORY: Breast neoplasm IMPRESSION: Ultrasound demonstrates that the mass within the outer lower right breast has been resec jack and lies within the surgical specimen
[2019-03-27] MEDS: HYDROMORPHONE HCL 1 MG/ML INJ ONE ×4 (11:17→11:41)
[2019-03-27] MEDS ORDERED: METOCLOPRAMIDE 10 MG/2mL INJ ONE (12:37)
[2019-03-27] MEDS ORDERED: CODEINE 30MG/APAP 300MG TAB ONE (12:53)
[2019-03-27 13:31] VITALS: O2SAT 98
[2019-03-27 13:33] VITALS: BP 118/75; TEMP 97
[2019-03-27] MEDS ORDERED: ONDANSETRON 4 MG (ODT) TAB ONE (13:56)
--- NOTE | 2019-03-28 00:27 | OP ---
Date of Procedure: 03/27/2019 Surgeon: Rocael Hernandez MD [employer]ige Goods Marker: WILTON Hwang. Preoperative Diagnosis: Right breast cancer. Postoperative Diagnosis: Right breast cancer. Procedure: Needle localization, right breast lumpectomy, and sentinel node biopsy. Estimated Blood Loss: Minimal. Specimen: [place] node which was negative for metastatic disease and lumpectomy which was closed on the medial side and I re-excised that area as well for negative margins. Findings: As above. Anesthesia: General. Complications: None. Disposition: The patient tolerated the procedure in stable condition and taken to Recovery in good g eneral condition. Procedure In Detail: The patient was brought to the OR and placed in supine position. General anest hesia was begun. The patient had methylene blue injected around the nipple and then breast massaged. This was done under sterile condition. Then, the patient was prepped and draped in usual sterile f ashion. Then, the counter was used to isolate the sentinel node in the right axilla. All counts wer e recorded on medical records. A blue lymph node was identified via a 2 cm incision and excised. Va scular clips were used and then these results came back as negative for metastatic disease. Wound ir rigated. Bleeding controlled with cautery. A 3-0 chromic used to reapproximate subcutaneous tissue and close the skin. Then, an ellipse of skin approximately 6 x 2 cm was done on the outer lower quad rant of the right breast where the needle was, and the entire tissue around the tip of the needle was excised, sent to ultrasound. The cancer tumor was in the specimen; however, on examination of the m argins revealed that it was close to the medial border, so there was more excision done on that and t hat was sent for permanent. Then, the entire cavity was irrigated. Bleeding was controlled with cau debo and 3-0 chromic used to approximate the subcutaneous tissue and close the skin. Sterile dressin g was applied. The patient was awakened and taken to Recovery in good general condition. Discharge Note: The patient will go to day surgery and home when stable. Disposition: Home. Condition: Stable. Discharge Instructions: Resume home medications and diet. Activity as tolerated. No heavy lifting. We will keep dressing clean and dry. Sponge bathe only. Follow up in my office in 1 week. Call f or appointment. Tylenol No. 3 one tablet p.o. q.4 p.r.n. pain. Keflex 500 mg p.o. q.6. PAL/MONO Voice ID: [id number] Report ID: [id number]
== END 2019-03-27 14:00 | disposition home or self-care (01) ==
LOC: OR 06:44
PROVIDERS: ATTEND Surgery
PROC: 0HBT0ZX Excision of Right Breast, Open Approach, Diagnostic (ICD-10-PCS; principal; 2019-03-27 09:00)
PROC: 07B50ZX Excision of Right Axillary Lymphatic, Open Approach, Diagnostic (ICD-10-PCS; 2019-03-27 09:00)
DX: C50.511 Malignant neoplasm of lower-outer quadrant of right female breast (principal); C77.3 Secondary and unspecified malignant neoplasm of axilla and upper limb lymph nodes; N60.01 Solitary cyst of right breast; Z17.0 Estrogen receptor positive status [ER+]; I10 Essential (primary) hypertension; Z79.899 Other long term (current) drug therapy
CPT/HCPCS: 19285; 76098; 81025; 88305; 88307; 88333; J0690; J1170; J2250; J2405; J2704; J2765; J3010

== ENCOUNTER 2021-10-04 06:22 | Day surgery (SDC) | payer OTHER ==
[2021-09-29 12:32] LABS: Absolute Lymphocytes (CBC) 1.8 K/uL (0.7-4.9); Basophils % 0.5 % (0-1.3); Hematocrit 36.8 % (36.0-45.0); Lymphocytes % 35.4 % (15.3-44.8); MPV 8.8 fL (7.6-11.3); RBC Red Blood Cell Count 4.01 M/uL (3.86-4.86)
[2021-09-29 12:36] LABS: Urine Appearance CLEAR (Clear); Urine Bilirubin NEGATIVE (Negative); Urine Blood NEGATIVE (Negative); Urine Color YELLOW (Yellow); Urine Glucose NEGATIVE (Negative); Urine Microscopic Reflex NO UMIC; Urine Protein NEGATIVE (Negative); Urine Specific Gravity 1.015 (1.005-1.030); Urine Urobilinogen 0.2 mg/dL (0.2-1.0); Urine pH 6.5 (5.0-7.0)
[2021-10-04] MEDS ORDERED: Ringers Lactate 1,000 ML IV ONE ×2 (06:56→07:17)
[2021-10-04] MEDS ORDERED: LIDOCAINE 1% MPF 2 ML AMPULE ONE (07:08)
[2021-10-04] MEDS ORDERED: GLYCOPYRROLATE 0.2 MG/ML SYR ONE (07:08)
[2021-10-04] MEDS ORDERED: MIDAZOLAM HCL 2 MG/2 ML INJ ONE (07:08)
[2021-10-04] MEDS ORDERED: FENTANYL CITR 100 MCG/2 ML ONE ×2 (07:08→10:36)
[2021-10-04] MEDS ORDERED: dexAMETHasone 10 MG/ML VIAL ONE (07:09)
[2021-10-04] MEDS ORDERED: propofoL 200 MG/20 ML VIAL IV ONE ×2 (07:09→08:43)
[2021-10-04] MEDS ORDERED: KETOROLAC 30 MG/ML INJ ONE (07:09)
[2021-10-04] MEDS ORDERED: ONDANSETRON 4 MG/2 ML VIAL ONE ×2 (07:09→11:58)
[2021-10-04] MEDS ORDERED: ROCURONIUM 50 MG/5 ML VIAL IV ONE ×2 (07:13→09:38)
[2021-10-04] MEDS ORDERED: CELECOXIB 100 MG CAPSULE ONE (07:13)
[2021-10-04] MEDS ORDERED: ACETAMINOPHEN 500 MG TAB ONE (07:13)
[2021-10-04] MEDS ORDERED: ACETAMINOPHEN 500 MG TAB PO ONE (07:15)
[2021-10-04] MEDS ORDERED: CELECOXIB 100 MG CAPSULE PO ONE (07:15)
[2021-10-04] MEDS ORDERED: BUPIVACAINE 0.25% PF 30 ML VIAL ONE (07:17)
[2021-10-04 07:47] LABS: Specific Gravity > 1.030 (1.005-1.030)
[2021-10-04] MEDS: CEFAZOLIN/SWI 2gm 2 GM/20 ML SYR ONE ×2 (07:55→08:00)
[2021-10-04] MEDS ORDERED: cloNIDine HCL 0.1 MG TAB PO PRN (10:58)
[2021-10-04] MEDS ORDERED: PREGABALIN 75 MG CAP PO PRN (10:58)
[2021-10-04] MEDS ORDERED: SUMATRIPTAN SUCCI 50 MG TAB PO PRN (10:58)
[2021-10-04] MEDS ORDERED: ACETAMIN/CAFFEINE/BUTALB TAB PO PRN (10:58)
[2021-10-04] MEDS ORDERED: HOME MED 1 EA UNK (Tizanidine Hcl [Tizanidine Hcl] 4 MG Capsule) PO PRN (10:58)
[2021-10-04] MEDS ORDERED: IBUPROFEN 200 MG TAB PO PRN (10:58)
[2021-10-04] MEDS ORDERED: HYDROCODONE/APAP 5/325 MG TAB PO PRN (11:00)
[2021-10-04] MEDS ORDERED: PROMETHAZINE INJ 25 MG/ML AMP IV PRN (11:00)
[2021-10-04] MEDS ORDERED: MEPERIDINE HCL 25 MG/ML SYR IM PRN (11:00)
[2021-10-04] MEDS ORDERED: DIPHENHYDRAMINE 25 MG TAB/CAP PO PRN (11:02)
--- NOTE | 2021-10-04 11:23 | P.BOP ---
Preoperative diagnosis: pelvic pain Postoperative diagnosis: same and extensive endometriosis, bilateral ovarian adhesions Primary procedure: TLH BSO endometriosis excision, CARLIE, right ureterolysis Secondary procedure: cystoscopy Muck Hauler: INDIA KNIGHT Estimated blood loss: 100 Specimen: uterus tubes and ovaries, endo inplants on serosa,L USL ligament attached Findings: endo left USL, bilat post broad ligaments, ant CDS and post Anesthesia: General Complications: None Transferred to: Recovery Room Condition: Good
[2021-10-04] MEDS: HYDROMORPHONE HCL 1 MG/ML INJ ONE ×2 (11:36→11:44)
[2021-10-04] MEDS ORDERED: HYDROMORPHONE HCL 1 MG/ML INJ ONE (11:50)
[2021-10-04] MEDS ORDERED: PANTOTHENIC ACID 500 MG PO SCH (12:00)
[2021-10-04] MEDS ORDERED: LACTOBACILLUS COMBINATION NO 4 PO SCH (12:00)
[2021-10-04] MEDS ORDERED: HOME MED 1 EA UNK (Biotin [Biotin] 1 MG Capsule) PO SCH (12:00)
[2021-10-04] MEDS ORDERED: CRANBERRY PO SCH (12:00)
[2021-10-04] MEDS ORDERED: MULTIVIT WITH CALCIUM IRON MIN PO SCH (12:00)
[2021-10-04] MEDS ORDERED: ASCORBIC ACID PO SCH (12:00)
[2021-10-04] MEDS ORDERED: VITAMIN D 1000 UNIT TAB PO SCH (12:00)
[2021-10-04] MEDS ORDERED: HOME MED 1 EA UNK (Cider Vinegar [Apple Cider Vinegar] 300 MG Tablet) PO SCH (12:00)
[2021-10-04] MEDS ORDERED: PROMETHAZINE INJ 25 MG/ML AMP ONE (14:06)
[2021-10-04] MEDS ORDERED: PROMETHAZINE INJ 25 MG/ML AMP IV ONE (14:10)
[2021-10-04] MEDS ORDERED: HYDROCODONE/APAP 5/325 MG TAB PO ONE (14:30)
[2021-10-04] MEDS ORDERED: DIPHENHYDRAMINE 25 MG TAB/CAP PO ONE (14:30)
[2021-10-04] MEDS ORDERED: DIPHENHYDRAMINE 25 MG TAB/CAP ONE (14:33)
[2021-10-04] MEDS ORDERED: HYDROCODONE/APAP 5/325 MG TAB ONE (14:33)
[2021-10-04 15:27] VITALS: BP 149/97; TEMP 97.6; O2SAT 97
[2021-10-04] MEDS ORDERED: VENLAFAXINE HCL 37.5 MG TAB PO SCH (21:00)
[2021-10-04] MEDS ORDERED: DIPHENHYDRAMINE 25 MG TAB/CAP PO SCH (21:00)
[2021-10-04] MEDS ORDERED: MELATONIN 3 MG TABLET PO SCH (21:00)
[2021-10-04] MEDS ORDERED: DICLOFENAC SOD D.R. 75 MG TAB PO SCH (21:00)
[2021-10-05] MEDS ORDERED: PSEUDOEPHEDRINE PO SCH (09:00)
[2021-10-05] MEDS ORDERED: METOPROLOL XL 100 MG TAB PO SCH (09:00)
[2021-10-05] MEDS ORDERED: HOME MED 1 EA UNK (Lansoprazole [Prevacid] 15 MG Capsule.Dr) PO SCH (09:00)
[2021-10-05] MEDS ORDERED: HOME MED 1 EA UNK (Valsartan/Hydrochlorothiazide [Valsartan-Hctz 160-12.5 Mg Tab] 1 EACH T PO SCH (09:00)
[2021-10-05] MEDS ORDERED: FEXOFENADINE PO SCH (09:00)
[2021-10-05] MEDS ORDERED: [UNRECOGNIZED DRUG - OTHER] PO SCH (09:00)
--- NOTE | 2021-10-05 16:50 | OP ---
Date of Procedure: 10/04/2021 Surgeon: Genesis Neely MD Truck Driver Supervisor: Nidia Long. Preoperative Diagnosis: Pelvic pain. The patient has breast cancer, on tamoxifen. Postoperative Diagnoses: Pelvic pain. The patient has breast cancer, on tamoxifen. Extensive endom etriosis, bilateral ovarian adhesions, retroperitoneal scarring on the right lateral wall on ureter. Primary Procedures: 1.Total laparoscopic hysterectomy, bilateral salpingo-oophorectomy, endometriosis excision, lysis of adhesions of both ovaries from the lateral wall of the broad ligament and right ureterolysis to rele ase the ureter from the retroperitoneal scarring and freeing it up and excising the endometriosis aft er this to prevent any narrowing from the fibrosis. 2.Cystoscopy. Anesthesia: General endotracheal. Estimated Blood Loss: 100. Urine Output: 100. Specimens: Uterus, bilateral tubes, and ovaries. Endometriosis implants on the serosa of the left u terosacral ligament and the serosa of the uterus in the posterior wall. Left uterosacral ligament im plant is also attached and included in specimen and anterior cul-de-sac endometriosis is also include d as this was dissected to leave no implants in the bladder. Findings: Same as above, endometriosis and the left uterosacral ligament nodular with clear endometr ioma like fluid oozing from it. Bilateral posterior broad ligaments with endometriosis, anterior and posterior cul-de-sacs with endo, partial obliteration of the posterior cul-de-sac. The bowel was re leased in order to keep it safe and endometriosis excised on both uterosacral ligaments and lateral w alls included with the specimen. Complications: No complications. Drains: No drains. Condition: Stable. On cystoscopy, the both ureteric orifices had normal jets of urine from them. No evidence of any tra gabby to the bladder. The patient's condition good. Procedure In Detail: After informed consent was verified, the patient was taken back to the OR. 2 g of Ancef were given. SCDs were placed. After she was given general anesthesia, she was placed in a dorsal lithotomy position using Avelino stirrups. Arms were tucked by the side after positioning was checked. Abdomen, vulva, vagina, and perineum were prepped and draped in a sterile fashion. Rose w as placed to drain the bladder and large uterine manipulator introduced into the uterus for manipulat ion and this area was draped. A 1 cm infraumbilical incision was made with a scalpel using the open laparoscopy technique. Fascia was incised, tagged with 0 Vicryl sutures. Peritoneum entered sharply. S-retractors were placed. H asson introduced. After adequate insufflation, upper abdominal surfaces were visualized. No evidenc e of any endometriosis there. The patient was placed in Trendelenburg and two 5 mm left and right lo wer quadrant ports were placed and 10 mm suprapubic ports. After visualization of the endometriosis, plan was to excise the endometriosis along with removing both tubes and ovaries. Procedure #1 was to separate the endometriosis dissecting away from the left ureter near the ureteric tunnel, so the Endo on the distal uterosacral could be included with the specimen of the uterus, so peritoneum was entered. The peritoneum was incised sharply with scissors, then with the help of the LigaSure. The dissection was performed with a Ashely tip to dissect the ureter on the medial leaf o f the peritoneum between the ureteric tunnel and the uterosacral ligament. Once this incision was ma de, the left pararectal space was entered and implant was excised inferiorly from the cul-de-sac as w ell. Next, attention was directed to the ovary, which was dissected free from the posterior broad li gament and lateral wall. Then, I went on to open the peritoneum lateral and parallel to the IP ligam ent. Then, incision was carried all the way to the broad. Then, the infundibulopelvic ligament and mesosalpinx were all taken down. The round ligament was taken down. The ureter was free and its loc ation was identified at the pelvic brim as well. Then, once this was done, the entire dissection of the posterior wall of the left broad ligament was completed and then anteriorly after taking down the round ligament, the broad ligament was anteriorly opened up to create a bladder flap. Here on the l eft side as there were 2 implants, dissection was carried lateral to the implant including them with the specimen and going to the area of the bladder flap. Once the vessels were skeletonized and expos ed the anterior vaginal cuff, the bladder was dissected down inferiorly on the left side and attentio n was directed to the right side. The next part of the dissection was the removal of the right ovari an adhesions. The one of the adhesions was very easy to be taken down with the help of the LigaSure. Then, the ureter was stuck at the level of the ureteric tunnel and distal 1/5 of the pelvic ureter just above the ureteric tunnel. As it was difficult to separate the ovary from the endometriotic sca r where it was attached to the ureter and plan was to perform a ureterolysis to separate from the sca rring. The ureterolysis had to be performed to release the ureter from its scar tissue to prevent any constr iction and narrowing of the lumen. The peritoneum was incised parallel to the ureter, between the ureter and the infundibulopelvic ligam ent. Dissection was carried to open this up parallelly keeping the ureter visual for at least 5 cm. Then, the peritoneum lateral to the IP was opened up all the way down to the right lower quadrant an d inferiorly to the level of the round ligament. Then, a window was created dissecting the lateral w all opening and visualizing the ureter from here. The internal iliac was identified. The anterior b ranch was identified by dissection and the ureter was identified here. The ureter was from the medial leaf gradually inferiorly as it went down to the level of the endometriotic scar. It was laterally from the origin of the uterine artery and dissected down to the level where it g ot into the scar. Here, the scar was released from the ovary and underlying endometriosis to the lat eral wall, so this helped mobilize the ureter. From the uterine artery laterally and then again medi ally, the ureter was dissected from the broad ligament as well as from the endometriosis where the ov tod was attached and ovarian dissection was performed medially to take it down from the uterosacral w here the endometriosis was scarred and the utero-ovarian ligament was constricted and stuck to the la teral wall of the uterus without ligament visualized. Once the ureterolysis was complete and the ovary was , then the IP was taken down and then t he ovary was held medially and it was dissected free and kept medial from the ureter. Once this was done and this was left attached to the specimen, then I was able to isolate the uterine vessel medial to the crossing of the ureter and near the internal os. Then, getting anteriorly the anterior broad ligament was taken down bringing the bladder flap here. So, the anterior vaginal wall was dissected . The bladder was dissected inferiorly after incising the vesicovaginal space and pushing it down wi th . Then, vessels were taken down close to the internal os. Now ureter was further later al as this was thoroughly dissected. Then, cardinal ligaments were taken down on the left side. The vessels were taken down as well and the cardinal ligament circumferential colpotomy was performed wi th a monopolar hook blade. Specimens were totally detached and removed together. Once this was all done, thorough irrigation and suction were performed. Hemostasis was secured with the tip of Ashely bipolar. Then, vaginal angles were closed with the help of 0 Vicryl sutures and 2-0 V-Loc used to d o a continuous running closure in 2 layers of the rest of the vaginal cuff. There was excellent closure, hemostasis. The EBL was 100. After completion of the procedure, the tr ocars were removed under direct vision. The ureters had no evidence of electrical, mechanical, or th ermal injury to them. The fascia at the umbilicus closed with tagged 0 Vicryl sutures, tied to each other and suprapubic si ngle suture placed for closure of the fascia, 3-0 chromic sutures for closure of subcutaneous tissues . Rose was removed. Cystoscopy was performed. Strong jets of urine from both ureteric orifices. No evidence of any trauma to the bladder. Bladder was drained. Vaginal cuff was also drained. It was irrigated and suction. Good hemostasis secured. The patient was recovered from anesthesia and taken to PACU in stable condition. Instrument, needle, and sponge counts were correct at the end of the case. EBL 100. BELLE/AMIL Voice ID: [id number] Report ID: [id number]
== END 2021-10-04 15:00 | disposition home or self-care (01) ==
LOC: OR 06:22
PROVIDERS: ATTEND Obstetrics & Gynecology
PROC: 0UT24ZZ Resection of Bilateral Ovaries, Percutaneous Endoscopic Approach (ICD-10-PCS; 2021-10-04)
PROC: 0UT74ZZ Resection of Bilateral Fallopian Tubes, Percutaneous Endoscopic Approach (ICD-10-PCS; 2021-10-04)
PROC: 0UB44ZZ Excision of Uterine Supporting Structure, Percutaneous Endoscopic Approach (ICD-10-PCS; 2021-10-04)
PROC: 0UB94ZZ Excision of Uterus, Percutaneous Endoscopic Approach (ICD-10-PCS; 2021-10-04)
PROC: 0UN24ZZ Release Bilateral Ovaries, Percutaneous Endoscopic Approach (ICD-10-PCS; 2021-10-04)
PROC: 0TN64ZZ Release Right Ureter, Percutaneous Endoscopic Approach (ICD-10-PCS; 2021-10-04)
PROC: 0UT94ZZ Resection of Uterus, Percutaneous Endoscopic Approach (ICD-10-PCS; principal; 2021-10-04 07:30)
DX: N80.0 Endometriosis of uterus (principal); I10 Essential (primary) hypertension; F41.9 Anxiety disorder, unspecified; N80.3 Endometriosis of pelvic peritoneum; N73.6 Female pelvic peritoneal adhesions (postinfective); Z85.3 Personal history of malignant neoplasm of breast; Z20.822 Contact with and (suspected) exposure to COVID-19; Z79.810 Long term (current) use of selective estrogen receptor modulators (SERMs)
CPT/HCPCS: 85025; 36415; 86900; 86850; 81025; 86901; 88307; 81003; 58571; 58662; 58660; 50949; U0002; J2704 ×2; J2550 ×2; J2250; J3010 ×2; J1100; J1170; J0690; J7120 ×2; J2405 ×2